=== PATIENT | female | born 1965 | race Two or more races ===

== ENCOUNTER 2022-04-08 08:24 | Outpatient (CLI) | payer OTHER | END 2022-04-08 08:29 | disposition home or self-care (01) | LOC: MAMO-SONO 08:24 | DX: C56.9 Malignant neoplasm of unspecified ovary (principal); N60.11 Diffuse cystic mastopathy of right breast; N60.12 Diffuse cystic mastopathy of left breast ==

== ENCOUNTER 2022-04-08 09:56 | Outpatient (CLI) | payer OTHER | END 2022-04-08 09:57 | disposition home or self-care (01) | LOC: NUCLEAR 09:56 | PROVIDERS: ATTEND Obstetrics & Gynecology Gynecology | DX: M81.0 Age-related osteoporosis without current pathological fracture (principal) ==

== ENCOUNTER 2023-02-22 07:11 | Outpatient (CLI) | payer OTHER | END 2023-02-22 07:17 | disposition home or self-care (01) | LOC: SONOGRAMA 07:11 | PROVIDERS: ATTEND Internal Medicine Cardiovascular Disease | DX: K76.0 Fatty (change of) liver, not elsewhere classified (principal); K76.9 Liver disease, unspecified ==

== ENCOUNTER 2023-09-21 07:08 | Outpatient (CLI) | payer OTHER | END 2023-09-21 07:15 | disposition home or self-care (01) | LOC: MAMO-SONO 07:08 | PROVIDERS: ATTEND Obstetrics & Gynecology Gynecology | DX: N60.11 Diffuse cystic mastopathy of right breast (principal); N60.12 Diffuse cystic mastopathy of left breast; Z12.31 Encounter for screening mammogram for malignant neoplasm of breast ==

== ENCOUNTER 2024-11-27 14:23 | Outpatient (CLI) | payer OTHER | END 2024-11-27 14:25 | disposition home or self-care (01) | LOC: SONOGRAMA 14:23 | PROVIDERS: ATTEND Physical Medicine & Rehabilitation | DX: M79.602 Pain in left arm (principal) ==

== ENCOUNTER 2025-01-31 13:52 | Outpatient (CLI) | payer OTHER ==
[~2025-01-31 13:52] MED LIST: METHOCARBAMOL500 MG PO; NABUMETONE750 MG PO
== END 2025-01-31 13:59 | disposition home or self-care (01) ==
LOC: MAMO-SONO 13:52
DX: N60.11 Diffuse cystic mastopathy of right breast (principal); N60.12 Diffuse cystic mastopathy of left breast

== ENCOUNTER 2025-01-31 15:29 | Outpatient (CLI) | payer OTHER | END 2025-01-31 15:33 | disposition home or self-care (01) | LOC: LAB 15:29 | DX: Z80.41 Family history of malignant neoplasm of ovary (principal) ==